=== PATIENT | male | born 1950 | race Caucasian/White ===

== ENCOUNTER 2020-07-28 10:02 | Day surgery (SDC) | payer OTHER ==
[~2020-07-28] VITALS: Ht 162.6 cm; Wt 102.1 kg
--- NOTE | ~2020-07-28 | O ---
[facility] [place] [address] OPERATIVE REPORT Name: GUERRERO BRADLEY Room #: REG [facility].#: [id number] Admission: 07/28/20 Attend Phys: Mg Troy MD Discharge: Date of : 50 Report #: [id number] THIS REPORT FOR: cc: Physician not on staff Physician not on staff Mg Troy MD ~ DOC #: [id number] cc: Dr. Bennie Martinez, Dr. Josee Troy MD DATE OF SERVICE: 07/28/2020 PREOPERATIVE DIAGNOSIS: Right nasolacrimal duct obstruction. POSTOPERATIVE DIAGNOSIS: Right nasolacrimal duct obstruction. PROCEDURE: Aborted right incisional dacryocystorhinostomy. SURGEON: Mg Troy MD RESTAURANT KITCHEN MANAGER: None. ANESTHESIA: General. COMPLICATIONS: Failure to perform the procedure. INFORMED CONSENT: This pleasant 70-year-old gentleman has chronic epiphora that has been unable to be significantly improved with multiple interventions to date. He presents today for an incisional right-sided dacryocystorhinostomy in order to attempt to improve his lacrimal outflow, tear drainage, level of comfort and visual clarity. Informed consent was obtained to include but not limited to the potential risk for loss of vision, bleeding, infection, failure to improve the problem, the potential need for further surgery or treatment. DESCRIPTION OF PROCEDURE: The patient was taken to the operating room where general anesthesia was administered. The right medial canthal area and the right lateral wall of the nose were then generously infiltrated with Xylocaine with epinephrine mixed with equal parts 0.75% Marcaine with Wydase. The right side of the nose was then packed with Afrin-soaked cottonoids. The patient was subsequently prepped and draped in the usual sterile fashion. He received intravenous antibiotics at the beginning of the case. A right-sided linear incision was then outlined with a fine skin marking pen overlying the anterior lacrimal crest. The incision was then made with a 15 blade. The dissection was then carried down bluntly onto the periosteum with a hemostat. A blunt lacrimal sac retractor was then placed medially as the [facility] [address] [place] [address] OPERATIVE REPORT Name: GUERRERO BRADLEY Room #: REG [facility]..#: [id number] Admission: 07/28/20 Attend Phys: Mg Troy MD Discharge: Date of : 50 Report #: [id number] dissection was taken down on to the periosteum. The periosteum was then incised with the cutting current, following which brisk bleeding instantly ensued. The angular artery in the area presumably had been violated with the initial ____ from the cautery. The next 15 minutes were spent obtaining hemostasis in the area which involved extensive cauterization to the tissue that would need to be used for the lacrimal sac flaps. Hemostasis having been achieved, it was elected to be in the patient's best interest to not do the DCR today because the flaps would not be adequate to allow for a good chance of patent anastomosis. With an understanding, the wound was closed with 6-0 plain gut sutures. A pressure dressing was placed with erythromycin on the ointment followed by several layers of Telfa, which were held in place with 2 eye pads, silk tape and Mastisol. The patient was subsequently transported to the recovery area with the procedure having not been performed. MD LEA Savage/KIERA/AUBRIE By: [id number] Mg Troy MD /nt
[~2020-07-28 10:02] MED LIST: ASA81BEC PO; ASPIR 8181 MG PO; COZAAR 25 MG TA25 M1 PO; FISH OIL 1,0001 EAC9 PO; FISH OIL 1,001000 M2 PO; FLEXERIL PO; FLONASE 0.05%50 MCG NARES; FLOVENT DISKU100 MCG INH; MOBIC15 MG PO; TYLENOL EXTRA500 MG PO; VENTOLIN HFA 1818 GM INH; VITAMIN B-121000 MC2 SUBLING; VITAMIN B-121000 MCG PO; ZOCOR20 MG PO
[2020-07-28 11:31] VITALS: BP 143/93
== END 2020-07-28 14:25 | disposition home or self-care (01) ==
LOC: OR 10:02
PROVIDERS: ATTEND Ophthalmology
DX: H04.551 Acquired stenosis of right nasolacrimal duct (principal); I10 Essential (primary) hypertension; E78.00 Pure hypercholesterolemia, unspecified; J45.909 Unspecified asthma, uncomplicated; G47.30 Sleep apnea, unspecified; Z98.890 Other specified postprocedural states; Z79.899 Other long term (current) drug therapy; Z91.040 Latex allergy status; Z20.822 Contact with and (suspected) exposure to COVID-19
CPT/HCPCS: 50010; 50101; 50386; 50398; 51636; 51777; 56528; 56531; 57006; 62110; 62900; 70005

== ENCOUNTER → 2020-10-06 | Day surgery (SDC) | payer OTHER ==
[~2020-10-06] VITALS: Ht 165.1 cm; Wt 113.4 kg
[~2020-10-06] MED LIST changes: +SINGULAIR 10 MG10 MG PO
--- NOTE | ~2020-10-06 | O ---
[facility] [place] [address] OPERATIVE REPORT Name: GUERRERO BRADLEY Room #: REG [facility].#: [id number] Admission: 10/06/20 Attend Phys: Mg Troy MD Discharge: Date of : 50 Report #: [id number] THIS REPORT FOR: cc: FAM - Family physician unknown FAM - Family physician unknown Mg Troy MD ~ cc: Bennie Martinez DATE OF SERVICE: 10/06/2020 PREOPERATIVE DIAGNOSIS: Right nasolacrimal duct obstruction. POSTOPERATIVE DIAGNOSIS: Right nasolacrimal duct obstruction. PROCEDURE: Right conjunctivodacryocystorhinostomy with insertion of a 4 x 17 mm frosted Reyes tube with nasal surgical video endoscopy. SURGEON: Mg Troy M.D. REINFORCING STEEL WORKER: None. ANESTHESIA: General. COMPLICATIONS: None. 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 He has obstructive sleep apnea with increased venous pressure in his head and neck, which causes his orbits to be chronically inflamed. He presents today for a conjunctivodacryocystorhinostomy in order to attempt to improve his tear outflow. Informed consent was obtained to include but not limited to the potential risk for loss of vision, bleeding, failure to improve the problem, the potential need for further surgery or treatment to include potential replacement or modification of the tube surgically. DESCRIPTION OF PROCEDURE: The patient was taken to the operating room where general anesthesia was administered. The right medial canthal area and the right lateral wall of the nose were then infiltrated with Xylocaine with epinephrine mixed with Marcaine and Wydase. The patient was subsequently prepped and draped in the usual sterile fashion. The right side of the nose was having been packed with Afrin-soaked cottonoids, the caruncle was grasped and elevated with a Castroviejo forceps prior to being amputated down to the level of the periosteum. Hemostasis was achieved with diligent pinpoint monopolar cautery, directing the dissection medially and inferiorly. [facility] [address] [place] [address] OPERATIVE REPORT Name: GUERRERO BRADLEY Room #: [place] [facility] [place]#: [id number] Admission: 10/06/20 Attend Phys: Mg Troy MD Discharge: Date of : 50 Report #: [id number] The Afrin-soaked cottonoids were removed from the nose and the video endoscope was used to inject some of the same anesthetic mixture used at the beginning of the case anterior to the insertion of the middle turbinate in the area of the proposed osteotomy. The Afrin-soaked cottonoids were placed. A punctum dilator was then used to pass through the area where the caruncle was excised into the space in the middle meatus. The first pass into that being somewhat too high and too close to the root of the turbinate. It was removed. The second pass yielded an aperture that was several millimeters inferior to the root of the middle turbinate and in the middle meatus in such a manner so as to expect it to drain well. The video endoscope notes were also worthy to document profound nasal mucosal hyperemia. A straight Cayetano was then used to enlarge the osteotomy and it was confirmed to be in the proper location video endoscopically. A guidewire was then passed over the Cayetano into the nasal vault and confirmed to be in the proper location video endoscopically. The Cayetano was removed and the first Reyes tube placed was a 4 mm x 17 mm frosted device. It appeared to seat adequately in the middle canthus and cleared the lateral nasal wall by between 1 and 2 mm. This was thought to be in good location and size of tube. The guidewire was removed. Erythromycin ophthalmic ointment was placed on the eye and the patient was cleaned and a shield placed over the right eye. He was then transported to the recovery area having tolerated the procedure well with no anesthetic or operative complications being noted. By: [id number] Mg Troy MD /nt
[2020-10-06 09:33] VITALS: BP 139/98
== END | disposition home or self-care (01) ==
LOC: OR 07:38
PROVIDERS: ATTEND Ophthalmology
DX: H04.551 Acquired stenosis of right nasolacrimal duct (principal); G47.33 Obstructive sleep apnea (adult) (pediatric); I10 Essential (primary) hypertension; E78.00 Pure hypercholesterolemia, unspecified; J45.909 Unspecified asthma, uncomplicated; Z98.890 Other specified postprocedural states; Z79.899 Other long term (current) drug therapy; Z87.891 Personal history of nicotine dependence
CPT/HCPCS: 50010; 50101; 50386; 50398; 51636; 51643; 62110; 62900; 64037; 70005